=== PATIENT | male | born 1950 | race Caucasian/White ===

== ENCOUNTER 2017-10-31 07:10 | Emergency (ER) | payer BC, MEDICARE ==
[2017-10-31 07:39] LABS: ADD MAN DIFF? NO
[2017-10-31] MEDS: IPRATROPIUM BROMIDE 0.5 MG/2.5 ML NEBU. NEB (07:44)
[2017-10-31] MEDS: ALBUTEROL SULFATE 2.5 MG/3 ML NEBU. CONT NEB (07:46)
[2017-10-31 07:50] LABS: BASO % 1 % (0-3); EOS # 0.1 x10^3/uL (0.0-0.7); EOS % 1 % (0-3); HEMATOCRIT 43.7 % (39.0-53.0); HEMOGLOBIN 14.4 g/dL (13.0-17.5); LYMPH # 1.1 x10^3/uL (1.0-4.8); LYMPH % 21 % (24-48); MEAN CORPUSCULAR HEMOGLOBIN 32 pg (25-35); MEAN CORPUSCULAR HGB CONC 33 g/dL (31-37); MEAN CORPUSCULAR VOLUME 97 fL (79-100); MONO # 0.5 x10^3/uL (0.0-1.1); MONO % 9 % (0-9); NEUT # 3.5 x10^3uL (1.8-7.7); NEUT % 68 % (31-73); PLATELET COUNT 229 x10^3/uL (140-400); RED BLOOD COUNT 4.49 x10^6/uL (4.30-5.70); RED CELL DISTRIBUTION WIDTH 14.9 % (11.5-14.5); WHITE BLOOD COUNT 5.1 x10^3/uL (4.0-11.0)
[2017-10-31] MEDS: methylPREDNISolone SOD SUCC PF 125 MG/2 ML VIAL. IV (07:54)
[2017-10-31 07:57] LABS: ANION GAP 9 (6-14); BLOOD UREA NITROGEN 12 mg/dL (8-26); BUN/CREATININE RATIO 15 (6-20); CALCIUM 9.6 mg/dL (8.5-10.1); CARBON DIOXIDE 30 mmol/L (21-32); CHLORIDE 106 mmol/L (98-107); CREATININE 0.8 mg/dL (0.7-1.3); GLUCOSE 100 mg/dL (70-99); POTASSIUM 3.3 mmol/L (3.5-5.1); SODIUM 145 mmol/L (136-145)
[2017-10-31 08:02] LABS: ALBUMIN 3.4 g/dL (3.4-5.0); ALK PHOS 72 U/L (46-116); ALT (SGPT) 28 U/L (16-63); AST (SGOT) 16 U/L (15-37); LIPASE 87 U/L (73-393); TOTAL BILIRUBIN 0.5 mg/dL (0.2-1.0); TOTAL PROTEIN 6.7 g/dL (6.4-8.2)
[2017-10-31 08:04] LABS: TROPONINI 0.018 ng/mL (0.000-0.055)
[2017-10-31 08:06] LABS: D-DIMER 1.39 ug/mlFEU (0.00-0.50)
[2017-10-31 08:07] LABS: NT-PRO BNP 634 pg/mL (0-124)
[2017-10-31] MEDS ORDERED: CONTRAST GIVEN MC (08:30)
[2017-10-31] MEDS: IOHEXOL 300 MG/ML 100ML VIAL. IV (09:20)
[2017-10-31] MEDS: FUROSEMIDE 40 MG/4 ML VIAL. IVP (10:38)
== END 2017-10-31 10:44 | disposition home or self-care (01) ==
LOC: ER 07:10
DX: R06.00 Dyspnea, unspecified (principal); R09.89 Other specified symptoms and signs involving the circulatory and respiratory systems; R05 Cough; F17.200 Nicotine dependence, unspecified, uncomplicated
CPT/HCPCS: 36415; 71045; 71275; 80053; 83690; 83880; 84484; 85025; 85379; 93005; 94644; 96374; 96375; 99285-25; J1940; J2930; J7613; J7644; Q9967

== ENCOUNTER 2018-04-02 06:02 | Emergency (ER) | payer BC, MEDICARE ==
[~2018-04-02] VITALS: Ht 180.3 cm; Wt 63.5 kg
[~2018-04-02 06:02] MED LIST: FURO-69 PO; PRED50TA PO
--- NOTE | 2018-04-02 06:19 | PHYS DOC ---
Past Medical History Past Medical History: Asthma, Bronchitis, COPD Past Surgical History: No Surgical History Alcohol Use: Rarely Drug Use: None Adult General Chief Complaint Chief Complaint: SHORTNESS OF BREATH HPI HPI Patient is a 67 year old male who presents with dyspnea. Patient is known to have COPD. He reports increased use of inhalers over the last 24 hours with worsening dyspnea this morning causing him to come to the ER. + worsening cough and sputum production. No fever or chills. Review of Systems Review of Systems Constitutional: Denies fever or chills HENT: Denies nasal congestion Respiratory: as documented above Cardiovascular: No additional information not addressed in HPI GI: Denies abdominal pain : Denies Musculoskeletal: Denies back pain Integument: Denies rash or skin lesions Neurologic: Denies headache Endocrine: Denies polyuria All other systems were reviewed and found to be within normal limits, except as documented in this note. Current Medications Current Medications Current Medications Medications (Trade) Dose Ordered Sig/Marjorie Start Time Stop Time Status Last Admin Dose Admin Albuterol Sulfate (Ventolin Neb Soln) 10 mg 1X ONCE 04/02/18 08:00 04/02/18 08:01 DC Albuterol/ Ipratropium (Duoneb) 3 ml 1X ONCE 04/02/18 07:00 04/02/18 07:03 DC 04/02/18 07:04 3 ML Azithromycin (Zithromax) 500 mg 1X ONCE 04/02/18 08:00 04/02/18 08:04 DC 04/02/18 08:36 500 MG Methylprednisolone Sodium Succinate (SOLU-Medrol 125MG VIAL) 125 mg 1X ONCE 04/02/18 06:30 04/02/18 06:31 DC 04/02/18 06:38 125 MG Allergies Allergies Allergies Coded Allergies Type Severity Reaction Last Updated Verified No Known Drug Allergies 10/31/17 No Physical Exam Physical Exam Constitutional: thin male in moderate respiratory distress HENT: Normocephalic, atraumatic, Eyes: PERRLA, EOMI Neck: Normal range of motion Cardiovascular:Heart rate regular rhythm Lungs & Thorax: significantly diminished air mvt. prolonged expiratory phase. faint wheezes bilaterally Abdomen: Bowel sounds normal, soft Skin: Warm, dry Back: No tenderness Extremities: No tenderness, no edema Neurologic: Alert and oriented X 3 Psychologic: Affect normal Current Patient Data Vital Signs Vital Signs Date Time Temp Pulse Resp B/P (MAP) Pulse Ox O2 Delivery O2 Flow Rate FiO2 04/02/18 07:55 95 Room Air 04/02/18 07:04 2.0 04/02/18 06:43 88 24 117/70 (86) 04/02/18 06:06 97.9 97.9 Lab Values Laboratory Tests Test 04/02/18 06:20 White Blood Count 9.2 x10^3/uL (4.0-11.0) Red Blood Count 4.75 x10^6/uL (4.30-5.70) Hemoglobin 15.4 g/dL (13.0-17.5) Hematocrit 45.4 % (39.0-53.0) Mean Corpuscular Volume 96 fL (79-100) Mean Corpuscular Hemoglobin 33 pg (25-35) Mean Corpuscular Hemoglobin Concent 34 g/dL (31-37) Red Cell Distribution Width 14.7 % (11.5-14.5) H Platelet Count 208 x10^3/uL (140-400) Neutrophils (%) (Auto) 75 % (31-73) H Lymphocytes (%) (Auto) 13 % (24-48) L Monocytes (%) (Auto) 8 % (0-9) Eosinophils (%) (Auto) 3 % (0-3) Basophils (%) (Auto) 1 % (0-3) Neutrophils # (Auto) 6.9 x10^3uL (1.8-7.7) Lymphocytes # (Auto) 1.2 x10^3/uL (1.0-4.8) Monocytes # (Auto) 0.7 x10^3/uL (0.0-1.1) Eosinophils # (Auto) 0.2 x10^3/uL (0.0-0.7) Basophils # (Auto) 0.1 x10^3/uL (0.0-0.2) Sodium Level 140 mmol/L (136-145) Potassium Level 4.0 mmol/L (3.5-5.1) Chloride Level 104 mmol/L (98-107) Carbon Dioxide Level 26 mmol/L (21-32) Anion Gap 10 (6-14) Blood Urea Nitrogen 16 mg/dL (8-26) Creatinine 0.9 mg/dL (0.7-1.3) Estimated GFR (Cockcroft-Gault) 84.7 Glucose Level 121 mg/dL (70-99) H Calcium Level 9.6 mg/dL (8.5-10.1) Procalcitonin < 0.10 ng/mL (0.00-0.10) Laboratory Tests 04/02/18 06:20 Laboratory Tests 04/02/18 06:20 EKG EKG [] Radiology/Procedures Radiology/Procedures No acute findings on CXR Course & Med Decision Making Course & Med Decision Making Pertinent Labs and Imaging studies reviewed. (See chart for details) patient is seen immediately on arrival to room 19. COPD exacerbation. No chest pain. Orders placed. 09:00: Patient was followed in the emergency department for 3 hours. He received a single DuoNeb treatment followed by an additional albuterol nebulized treatment followed by an hour-long continuous treatment. He also received Solu-Medrol intravenously. Following these treatments, the patient was much improved. He did continue to have some diminished air flow but he states he subjectively is at baseline. He did not have an oxygen requirement during the ED course. He does not use oxygen at home. Plan is for discharge home. Patient is advised to follow-up with his primary care doctor or come back to the ER for any new or worsening symptoms. He is treated with azithromycin and prednisone over the next 4 days for COPD exacerbation. Dragon Disclaimer Dragon Disclaimer This electronic medical record was generated, in whole or in part, using a voice recognition dictation system. Departure Departure Referrals: NO PCP (PCP) ASAF JARAMILLO DO Apr 02, 2018 06:19
[2018-04-02] MEDS ORDERED: IPRATRPIUM/ALBUTEROL 0.5/2.5MG 3 ML NEBU. NEB ONE ×2 (06:30→07:00)
[2018-04-02] MEDS ORDERED: methylPREDNISolone SOD SUCC PF 125 MG/2 ML VIAL. IV ONE (06:30)
[2018-04-02 06:35] LABS: BASO # 0.1 x10^3/uL (0.0-0.2); BASO % 1 % (0-3); EOS # 0.2 x10^3/uL (0.0-0.7); EOS % 3 % (0-3); HEMATOCRIT 45.4 % (39.0-53.0); HEMOGLOBIN 15.4 g/dL (13.0-17.5); LYMPH # 1.2 x10^3/uL (1.0-4.8); LYMPH % 13 % (24-48); MEAN CORPUSCULAR HEMOGLOBIN 33 pg (25-35); MEAN CORPUSCULAR HGB CONC 34 g/dL (31-37); MEAN CORPUSCULAR VOLUME 96 fL (79-100); MONO # 0.7 x10^3/uL (0.0-1.1); MONO % 8 % (0-9); NEUT # 6.9 x10^3uL (1.8-7.7); NEUT % 75 % (31-73); PLATELET COUNT 208 x10^3/uL (140-400); RED BLOOD COUNT 4.75 x10^6/uL (4.30-5.70); RED CELL DISTRIBUTION WIDTH 14.7 % (11.5-14.5); WHITE BLOOD COUNT 9.2 x10^3/uL (4.0-11.0)
[2018-04-02 06:44] LABS: CALCIUM 9.6 mg/dL (8.5-10.1); CREATININE 0.9 mg/dL (0.7-1.3); GFR 84.7
[2018-04-02] MEDS ORDERED: ALBUTEROL SULFATE 2.5 MG/3 ML NEBU. CONT NEB ONE ×2 (07:45→08:00)
--- NOTE | 2018-04-02 07:50 | RAD ---
Portable chest, 04/02/2018: HISTORY: Dyspnea, COPD The lungs are hyperexpanded. The heart size is normal. There is mild parenchymal scarring. No acute infiltrate is seen. There is no evidence of pleural fluid or pneumothorax. IMPRESSION: 1. Pulmonary emphysema with mild parenchymal scarring. 2. No acute acute abnormality is detected. Electronically signed by: Cesar Suazo MD (04/02/2018 7:46 AM) [facility]
[2018-04-02] MEDS ORDERED: AZITHROMYCIN 250 MG TABLET. PO ONE (08:00)
[2018-04-02 09:00] VITALS: BP 130/70
[2018-04-02] MEDS ORDERED: PRED50TA PO (09:06)
[2018-04-02] MEDS ORDERED: AZIT250T6 PO (09:06)
[2018-04-09] MEDS ORDERED: BUDE10.22 IH (09:55)
== END 2018-04-02 09:19 | disposition home or self-care (01) ==
LOC: ER 06:02
DX: J44.1 Chronic obstructive pulmonary disease with (acute) exacerbation (principal)
CPT/HCPCS: 36415; 71045; 80048; 84145; 85025; 94644; 96374; 99285; J2930; J7613; J7620; Q0144; 94640

== ENCOUNTER 2018-04-08 16:15 | Inpatient (IN) | payer BC, MEDICARE ==
[~2018-04-08] VITALS: Ht 180.3 cm; Wt 60.4 kg
[~2018-04-08 16:15] MED LIST changes: +AZIT250T6 PO
[2018-04-08] MEDS ORDERED: IPRATRPIUM/ALBUTEROL 0.5/2.5MG 3 ML NEBU. NEB ONE (16:45)
[2018-04-08] MEDS ORDERED: methylPREDNISolone SOD SUCC PF 125 MG/2 ML VIAL. IV ONE (16:45)
[2018-04-08] MEDS ORDERED: IV NORMAL SALINE 1000ML BAG 1,000 ML IV ONE (16:45)
[2018-04-08 16:51] LABS: BASO % 0 % (0-3); EOS # 0.2 x10^3/uL (0.0-0.7); EOS % 2 % (0-3); HEMATOCRIT 41.7 % (39.0-53.0); HEMOGLOBIN 14.1 g/dL (13.0-17.5); LYMPH # 1.1 x10^3/uL (1.0-4.8); LYMPH % 12 % (24-48); MEAN CORPUSCULAR HEMOGLOBIN 32 pg (25-35); MEAN CORPUSCULAR HGB CONC 34 g/dL (31-37); MEAN CORPUSCULAR VOLUME 95 fL (79-100); MONO # 0.9 x10^3/uL (0.0-1.1); MONO % 9 % (0-9); NEUT # 7.3 x10^3uL (1.8-7.7); NEUT % 77 % (31-73); PLATELET COUNT 217 x10^3/uL (140-400); RED BLOOD COUNT 4.38 x10^6/uL (4.30-5.70); RED CELL DISTRIBUTION WIDTH 14.9 % (11.5-14.5); WHITE BLOOD COUNT 9.5 x10^3/uL (4.0-11.0)
--- NOTE | 2018-04-08 17:02 | PHYS DOC ---
Past Medical History Past Medical History: Asthma, Bronchitis, COPD Past Surgical History: No Surgical History Smoking: Cigarettes, 1 Pack Per Day Alcohol Use: Rarely Drug Use: None Adult General Chief Complaint Chief Complaint: SHORTNESS OF BREATH HPI HPI 67-year-old male presents to ER via POV for complaints of increased shortness of air- he drove self to ER. Pt required assistance from his vehicle due to his shortness of air and had O2 sat on RA at 90% with labored resp. Pt was placed on 2L via NC and reports improved sxs. Pt's O2 sat with oxygen up to 97%; however resp. do remain labored. Pt is able to speak in fragmented sentences. Pt reports he was seen in ER for SOA on Monday and was given course of Prednisone- he reports he finished Rx on Monday. Pt reports he felt his sxs started getting bad again on Monday and today he has had difficulty "catching his breath". Pt reports he has had chest tightness and prod. cough with white phlegm. Pt reports he has felt warm and clammy- uncertain of temp. Pt denies lethargy but reports he has been feeling fatigued. Pt denies swelling in extremities, abd pain, or N/V/D. Pt is 1ppd smoker for several years. Review of Systems Review of Systems Constitutional: Reports feeling clammy- uncertain of fever Eyes: Denies change in visual acuity, redness, or eye pain [] HENT: Denies nasal congestion or sore throat [] Respiratory: Reports cough with white phlegm. Reports severe SOA today Cardiovascular: Reports chest tightness. Denies palpitations GI: Denies abdominal pain, nausea, vomiting, bloody stools or diarrhea [] : Denies dysuria or hematuria [] Musculoskeletal: Denies back/neck pain or joint pain [] Integument: Denies rash or skin lesions. Denies swelling Neurologic: Denies headache, focal weakness or sensory changes. Reports lightheadedness and dizziness when SOA worsened today and he was having rapid resp. All other systems were reviewed and found to be within normal limits, except as documented in this note. Current Medications Current Medications Current Medications Medications (Trade) Dose Ordered Sig/Marjorie Start Time Stop Time Status Last Admin Dose Admin Acetaminophen (Tylenol) 650 mg PRN Q4HRS PRN 04/08/18 18:00 04/09/18 17:59 Acetaminophen/ Codeine Phosphate (Tylenol #3) 1 tab PRN Q6HRS PRN 04/08/18 18:00 Albuterol Sulfate (Ventolin Neb Soln) 2.5 mg PRN Q4HRS PRN 04/08/18 18:00 Albuterol/ Ipratropium (Duoneb) 3 ml RTQID 04/08/18 20:00 04/09/18 19:59 UNV Benzonatate (Tessalon Perle) 100 mg [id number] 04/08/18 21:00 Diphenhydramine HCl (Benadryl) 25 mg PRN QHS PRN 04/08/18 18:00 Doxycycline Hyclate (Vibra-Tab) 100 mg 1X ONCE 04/08/18 17:45 04/08/18 17:48 DC Furosemide (Lasix) 20 mg [id number] 04/08/18 18:00 Guaifenesin (Robitussin Dm) 10 ml PRN Q6HRS PRN 04/08/18 18:00 Methylprednisolone Sodium Succinate (SOLU-Medrol 40MG VIAL) 40 mg Q8HRS 04/08/18 22:00 Methylprednisolone Sodium Succinate (SOLU-Medrol 125MG VIAL) 125 mg 1X ONCE 04/08/18 16:45 04/08/18 16:46 DC 04/08/18 16:50 125 MG Nicotine (Nicoderm Cq 21mg) 1 patch PRN DAILY PRN 04/08/18 18:00 Ondansetron HCl (Zofran Odt) 4 mg PRN Q6HRS PRN 04/08/18 18:00 Ondansetron HCl (Zofran) 4 mg PRN Q6HRS PRN 04/08/18 18:00 Sodium Chloride 1,000 ml @ 1,000 mls/hr 1X ONCE 04/08/18 16:45 04/08/18 17:44 DC 04/08/18 16:51 1,000 MLS/HR Allergies Allergies Allergies Coded Allergies Type Severity Reaction Last Updated Verified No Known Drug Allergies 10/31/17 No Physical Exam Physical Exam Constitutional: Well developed, well nourished, moderate distress on initial exam with labored resp. HENT: Normocephalic, atraumatic, bilateral ears normal, mucous membranes pink/ dry, no oral exudates, nose normal. [] Eyes: PERRLA, conjunctiva normal, no discharge. [] Neck: Normal range of motion, no tenderness, supple, no gross adenopathy Cardiovascular:Heart rate regular rhythm, no murmur [] Lungs & Thorax: Diminished lung sounds throughout- less air movement in bases. No chest wall tenderness/crepitus. Equal/labored resp. Speaking in fragmented sentences Abdomen: Bowel sounds normal, soft, no tenderness, no masses, no pulsatile masses. [] Skin: Warm, dry, no erythema, no rash.Upper chest skin color dusky- no swelling Back: No tenderness, no CVA tenderness. [] Extremities: No tenderness, no clubbing, ROM intact, no edema.Cyanotic nailbeds Neurologic: Alert and oriented X 3, normal motor function, normal sensory function, no focal deficits noted. [] Psychologic: Affect normal, judgement normal, mood normal. [] Current Patient Data Vital Signs Vital Signs Date Time Temp Pulse Resp B/P (MAP) Pulse Ox O2 Delivery O2 Flow Rate FiO2 04/08/18 17:20 82 20 136/69 (91) 98 Room Air 04/08/18 16:52 4.0 04/08/18 16:20 97.9 97.9 Lab Values Laboratory Tests Test 04/08/18 16:40 04/08/18 17:04 White Blood Count 9.5 x10^3/uL (4.0-11.0) Red Blood Count 4.38 x10^6/uL (4.30-5.70) Hemoglobin 14.1 g/dL (13.0-17.5) Hematocrit 41.7 % (39.0-53.0) Mean Corpuscular Volume 95 fL (79-100) Mean Corpuscular Hemoglobin 32 pg (25-35) Mean Corpuscular Hemoglobin Concent 34 g/dL (31-37) Red Cell Distribution Width 14.9 % (11.5-14.5) H Platelet Count 217 x10^3/uL (140-400) Neutrophils (%) (Auto) 77 % (31-73) H Lymphocytes (%) (Auto) 12 % (24-48) L Monocytes (%) (Auto) 9 % (0-9) Eosinophils (%) (Auto) 2 % (0-3) Basophils (%) (Auto) 0 % (0-3) Neutrophils # (Auto) 7.3 x10^3uL (1.8-7.7) Lymphocytes # (Auto) 1.1 x10^3/uL (1.0-4.8) Monocytes # (Auto) 0.9 x10^3/uL (0.0-1.1) Eosinophils # (Auto) 0.2 x10^3/uL (0.0-0.7) Basophils # (Auto) 0.0 x10^3/uL (0.0-0.2) Sodium Level 138 mmol/L (136-145) Potassium Level 3.8 mmol/L (3.5-5.1) Chloride Level 101 mmol/L (98-107) Carbon Dioxide Level 32 mmol/L (21-32) Anion Gap 5 (6-14) L Blood Urea Nitrogen 17 mg/dL (8-26) Creatinine 0.8 mg/dL (0.7-1.3) Estimated GFR (Cockcroft-Gault) 97.0 BUN/Creatinine Ratio 21 (6-20) H Glucose Level 122 mg/dL (70-99) H Calcium Level 9.7 mg/dL (8.5-10.1) Magnesium Level 1.9 mg/dL (1.8-2.4) Total Bilirubin 0.4 mg/dL (0.2-1.0) Aspartate Amino Transferase (AST) 23 U/L (15-37) Alanine Aminotransferase (ALT) 45 U/L (16-63) Alkaline Phosphatase 108 U/L (46-116) Creatine Kinase 268 U/L (39-308) Creatine Kinase MB (Mass) 5.2 ng/mL (0.0-3.6) H Creatine Kinase MB Relative Index 1.9 % (0-4) Troponin I Quantitative < 0.017 ng/mL (0.000-0.055) GT-Nbt-S-Type Natriuretic Peptide 403 pg/mL (0-124) H Total Protein 6.8 g/dL (6.4-8.2) Albumin 3.5 g/dL (3.4-5.0) Albumin/Globulin Ratio 1.1 (1.0-1.7) Lactic Acid Level 0.7 mmol/L (0.4-2.0) Laboratory Tests 04/08/18 16:40 Laboratory Tests 04/08/18 16:40 EKG EKG EKG obtained at 1631 on 04/08/[address] Alcantar Sinus rhythm Vent rate 98 Radiology/Procedures Radiology/Procedures [] Course & Med Decision Making Course & Med Decision Making Pertinent Labs and Imaging studies reviewed. (See chart for details) 1744: Pt on re-exam after Duoneb and IV solu-medrol has improved skin color and resp. less labored. O2 sat 99% on 3L. Resp. remain equal and are still slightly labored- pt is able to speak in full sentences reporting his SOA has much improved since arriving to ER and receiving txs. Pt reports chest tightness subsided. Discussed test results and although no acute findings on chest xray discussed admission for further care/tx as his resp. are still labored on O2. Pt is agreeable with admission plan. Will start PO Doxycycline with pt having hx of smoking. On re-exam pt has increased air movement throughout all lobes- remains more diminished in bases- bilat. upper expiratory wheezing. At time of discussion pt remains nontoxic in appearance and is smiling with staff. Spoke with Dr. Garsia, hospitalist and discussed pt's case and plans for admission to their services for further care/monitoring. Dragon Disclaimer Dragon Disclaimer This electronic medical record was generated, in whole or in part, using a voice recognition dictation system. Departure Departure Impression: Primary Impression: COPD exacerbation Additional Impression: Dyspnea Disposition: 09 ADMITTED INPATIENT Admitting Physician: Tammi Garsia Condition: STABLE Referrals: DEDRICK LINDSEY (PCP) Problem Qualifiers KAT STARK APRN Apr 08, 2018 17:02
[2018-04-08 17:05] LABS: CALCIUM 9.7 mg/dL (8.5-10.1); CREATININE 0.8 mg/dL (0.7-1.3); POTASSIUM 3.8 mmol/L (3.5-5.1)
[2018-04-08 17:13] LABS: ALBUMIN 3.5 g/dL (3.4-5.0); ALBUMIN/GLOBULIN RATIO 1.1 (1.0-1.7); MAGNESIUM 1.9 mg/dL (1.8-2.4); TOTAL BILIRUBIN 0.4 mg/dL (0.2-1.0); TOTAL PROTEIN 6.8 g/dL (6.4-8.2)
[2018-04-08] MEDS ORDERED: DOXYCYCLINE HYCLATE 100 MG TABLET PO ONE (17:45)
[2018-04-08] MEDS ORDERED: ONDANSETRON PF 4 MG/2 ML VIAL. IV PRN (18:00)
[2018-04-08] MEDS ORDERED: ACETAMINOPHEN/CODEINE 300/30MG TABLET. PO PRN (18:00)
[2018-04-08] MEDS ORDERED: NICOTINE 21MG PATCH. TD PRN (18:00)
[2018-04-08] MEDS ORDERED: ACETAMINOPHEN 325 MG TABLET. PO PRN (18:00)
[2018-04-08] MEDS ORDERED: guaiFENesin DM 200MG/20MG 10 ML SYRUP PO PRN (18:00)
[2018-04-08] MEDS ORDERED: ACETAMINOPHEN 500 MG TABLET PO PRN (18:00)
[2018-04-08] MEDS ORDERED: diphenhydrAMINE HCL 25 MG CAPSULE PO PRN (18:00)
[2018-04-08] MEDS ORDERED: ALBUTEROL SULFATE 2.5 MG/3 ML NEBU. NEB PRN (18:00)
[2018-04-08] MEDS ORDERED: ONDANSETRON ODT 4 MG TAB.RAPDIS. PO PRN (18:00)
--- NOTE | 2018-04-08 18:04 | PDOC1 ---
History and Physical Date of Admission Date of Admission DATE: 04/08/18 TIME: 17:57 Identification/Chief Complaint Chief Complaint Cannot breathe Source Source: Caregiver, Chart review, Patient History of Present Illness History of Present Illness 67-year-old male who unfortunately continues to smoke a pack a day, for many years, comes in because of could not catch his breath. He is wheezy anterior and posterior auscultation. Chest x-ray looks okay. He actually had at ER visit 7 days ago was discharged on tapering steroids and by mouth antibiotics with no relief. He had low saturations on arrival but that is better now after ER treatment. He's laying still because short movements makes him wheezy and SOA. We will admit with pulmonary consult, continue breathing treatments, steroids and some empiric antibiotics Discussed with ER mid-level provider Seen at ER NO other signif pMHx He denies any recent sick contacts or travels. He lives alone at home. He does not have any fevers. He thinks he coughing up something now, which he thinks is a good sign. Past Medical History Pulmonary: Asthma, Bronchitis, COPD Past Surgical History Past Surgical History: No pertinent history Family History Family History: No Significant Social History Smoke: 1 pack per day ALCOHOL: none Drugs: None Current Medications Current Medications Current Medications Sodium Chloride 1,000 ml @ 1,000 mls/hr 1X ONCE IV Last administered on at 16:51; Start 04/08/18 at 16:45; Stop 04/08/18 at 17:44; Status DC Albuterol/ Ipratropium (Duoneb) 3 ml 1X ONCE NEB Last administered on at 16:51; Start 04/08/18 at 16:45; Stop 04/08/18 at 16:46; Status DC Methylprednisolone Sodium Succinate (SOLU-Medrol 125MG VIAL) 125 mg 1X ONCE IV Last administered on 04/08/18at 16:50; Start 04/08/18 at 16:45; Stop 04/08/18 at 16:46; Status DC Doxycycline Hyclate (Vibra-Tab) 100 mg 1X ONCE PO ; Start 04/08/18 at 17:45; Stop 04/08/18 at 17:48; Status DC Furosemide (Lasix) 20 mg [id number] PO ; Start 04/08/18 at 18:00 Active Scripts Active Azithromycin Tablet (Azithromycin) 250 Mg Tablet 250 Mg PO DAILY Prednisone 50 Mg Tablet 1 Tab PO DAILY Prednisone 50 Mg Tablet 1 Tab PO DAILY Lasix (Furosemide) 20 Mg Tablet 1 Tab PO BID Allergies Allergies: Coded Allergies: No Known Drug Allergies (Unverified , 10/31/17) ROS Review of System As per history of present illness, the rest of ROS 14 point negative Physical Exam General: Alert, Oriented X3, Cooperative, mild distress, moderate distress HEENT: Atraumatic, PERRLA Lungs: Normal air movement, Other (wheezy anterior and posterior auscultation, no crackles) Heart: S1S2, RRR, no thrills, no rubs, no gallops, no murmurs, other (mild sinus tachycardia in the 90s to low 100s) Cardiovascular: S1 Abdomen: Normal bowel sounds Male Genitals Exam: normal genitalia, normal prostate Rectal Exam: not examined PELVIC: Nml ext genitalia Extremities: No clubbing, No cyanosis, No edema, Normal pulses, No tenderness/ swelling Skin: No rashes, No breakdown, No significant lesion Neuro: Normal gait, Normal speech, Strength at 5/5 X4 ext, Normal tone, Sensation intact, Cranial nerves 3-12 NL, Reflexes 2+ Psych/Mental Status: Mental status NL, Mood NL Vitals Vitals Vital Signs Date Time Temp Pulse Resp B/P (MAP) Pulse Ox O2 Delivery O2 Flow Rate FiO2 04/08/18 17:20 82 20 136/69 (91) 98 Room Air 04/08/18 16:52 4.0 04/08/18 16:20 97.9 97.9 Labs Labs Laboratory Tests Test 04/08/18 16:40 04/08/18 17:04 White Blood Count 9.5 x10^3/uL (4.0-11.0) Red Blood Count 4.38 x10^6/uL (4.30-5.70) Hemoglobin 14.1 g/dL (13.0-17.5) Hematocrit 41.7 % (39.0-53.0) Mean Corpuscular Volume 95 fL (79-100) Mean Corpuscular Hemoglobin 32 pg (25-35) Mean Corpuscular Hemoglobin Concent 34 g/dL (31-37) Red Cell Distribution Width 14.9 % (11.5-14.5) Platelet Count 217 x10^3/uL (140-400) Neutrophils (%) (Auto) 77 % (31-73) Lymphocytes (%) (Auto) 12 % (24-48) Monocytes (%) (Auto) 9 % (0-9) Eosinophils (%) (Auto) 2 % (0-3) Basophils (%) (Auto) 0 % (0-3) Neutrophils # (Auto) 7.3 x10^3uL (1.8-7.7) Lymphocytes # (Auto) 1.1 x10^3/uL (1.0-4.8) Monocytes # (Auto) 0.9 x10^3/uL (0.0-1.1) Eosinophils # (Auto) 0.2 x10^3/uL (0.0-0.7) Basophils # (Auto) 0.0 x10^3/uL (0.0-0.2) Sodium Level 138 mmol/L (136-145) Potassium Level 3.8 mmol/L (3.5-5.1) Chloride Level 101 mmol/L (98-107) Carbon Dioxide Level 32 mmol/L (21-32) Anion Gap 5 (6-14) Blood Urea Nitrogen 17 mg/dL (8-26) Creatinine 0.8 mg/dL (0.7-1.3) Estimated GFR (Cockcroft-Gault) 97.0 BUN/Creatinine Ratio 21 (6-20) Glucose Level 122 mg/dL (70-99) Calcium Level 9.7 mg/dL (8.5-10.1) Magnesium Level 1.9 mg/dL (1.8-2.4) Total Bilirubin 0.4 mg/dL (0.2-1.0) Aspartate Amino Transf (AST/SGOT) 23 U/L (15-37) Alanine Aminotransferase (ALT/SGPT) 45 U/L (16-63) Alkaline Phosphatase 108 U/L (46-116) Creatine Kinase 268 U/L (39-308) Creatine Kinase MB (Mass) 5.2 ng/mL (0.0-3.6) Creatine Kinase MB Relative Index 1.9 % (0-4) Troponin I Quantitative < 0.017 ng/mL (0.000-0.055) DQ-Rah-J-Type Natriuretic Peptide 403 pg/mL (0-124) Total Protein 6.8 g/dL (6.4-8.2) Albumin 3.5 g/dL (3.4-5.0) Albumin/Globulin Ratio 1.1 (1.0-1.7) Lactic Acid Level 0.7 mmol/L (0.4-2.0) Laboratory Tests Test 04/08/18 16:40 04/08/18 17:04 White Blood Count 9.5 x10^3/uL (4.0-11.0) Red Blood Count 4.38 x10^6/uL (4.30-5.70) Hemoglobin 14.1 g/dL (13.0-17.5) Hematocrit 41.7 % (39.0-53.0) Mean Corpuscular Volume 95 fL (79-100) Mean Corpuscular Hemoglobin 32 pg (25-35) Mean Corpuscular Hemoglobin Concent 34 g/dL (31-37) Red Cell Distribution Width 14.9 % (11.5-14.5) Platelet Count 217 x10^3/uL (140-400) Neutrophils (%) (Auto) 77 % (31-73) Lymphocytes (%) (Auto) 12 % (24-48) Monocytes (%) (Auto) 9 % (0-9) Eosinophils (%) (Auto) 2 % (0-3) Basophils (%) (Auto) 0 % (0-3) Neutrophils # (Auto) 7.3 x10^3uL (1.8-7.7) Lymphocytes # (Auto) 1.1 x10^3/uL (1.0-4.8) Monocytes # (Auto) 0.9 x10^3/uL (0.0-1.1) Eosinophils # (Auto) 0.2 x10^3/uL (0.0-0.7) Basophils # (Auto) 0.0 x10^3/uL (0.0-0.2) Sodium Level 138 mmol/L (136-145) Potassium Level 3.8 mmol/L (3.5-5.1) Chloride Level 101 mmol/L (98-107) Carbon Dioxide Level 32 mmol/L (21-32) Anion Gap 5 (6-14) Blood Urea Nitrogen 17 mg/dL (8-26) Creatinine 0.8 mg/dL (0.7-1.3) Estimated GFR (Cockcroft-Gault) 97.0 BUN/Creatinine Ratio 21 (6-20) Glucose Level 122 mg/dL (70-99) Calcium Level 9.7 mg/dL (8.5-10.1) Magnesium Level 1.9 mg/dL (1.8-2.4) Total Bilirubin 0.4 mg/dL (0.2-1.0) Aspartate Amino Transf (AST/SGOT) 23 U/L (15-37) Alanine Aminotransferase (ALT/SGPT) 45 U/L (16-63) Alkaline Phosphatase 108 U/L (46-116) Creatine Kinase 268 U/L (39-308) Creatine Kinase MB (Mass) 5.2 ng/mL (0.0-3.6) Creatine Kinase MB Relative Index 1.9 % (0-4) Troponin I Quantitative < 0.017 ng/mL (0.000-0.055) AA-Gio-Q-Type Natriuretic Peptide 403 pg/mL (0-124) Total Protein 6.8 g/dL (6.4-8.2) Albumin 3.5 g/dL (3.4-5.0) Albumin/Globulin Ratio 1.1 (1.0-1.7) Lactic Acid Level 0.7 mmol/L (0.4-2.0) VTE Prophylaxis Ordered VTE Prophylaxis Devices: Yes VTE Pharmacological Prophylaxi: Yes Assessment/Plan Assessment/Plan Acute bronchitis COPD exacerbation smoker At least a pack-a-day smoker SIRS secondary to above, no sepsis, no organ dysfunction No pneumonia on chest x-ray Plan: Pulmo consult, admit 2 midnights, DuoNeb's, cough medicine, regular diet Empiric antibiotics Seen at ER nia patch Counseling cessation again smoking done today one-to-one at ER TU VALLEJO MD Apr 08, 2018 18:04
--- NOTE | 2018-04-08 18:06 | EKG ---
[facility] [address] [place] [address] Test Date: 2018-04-08 Test Time: 16:31:28 Pat Name: JUDY RAO Department: Room: Gender: M Inventory Transcriber: : [id number] Requested By: KAT STARK Order Number: [id number] Reading MD: Yuriy Valle MD Measurements Intervals [place] Rate: 98 P: 90 MN: 150 QRS: 75 QRSD: 86 T: 76 QT: 336 QTc: 431 Interpretive Statements SINUS RHYTHM Electronically Signed On 04-09-2018 10:53:13 CDT by Yuriy Valle MD
[2018-04-08] MEDS: FUROSEMIDE 20 MG TABLET PO SCH (18:09)
--- NOTE | 2018-04-08 18:14 | RAD ---
CHEST AP ONLY INDICATION: short of breath today, copd COMPARISON: Chest radiograph dated 04/02/2018 FINDINGS: Unchanged lung volume. Development of right suprahilar patchy airspace opacities. Unchanged pulmonary vasculature. No pleural effusion or pneumothorax. The cardiomediastinal silhouette and great vessels are unchanged. No acute osseous abnormality. IMPRESSION: Development of right suprahilar patchy airspace opacities. Findings are concerning for an infectious process. Asymmetric pulmonary edema is not excluded. Recommend continued radiographic follow-up to resolution. Electronically signed by: Nico Nath MD (04/08/2018 6:11 PM) [facility]
[2018-04-08 19:00] VITALS: BP 140/80
[2018-04-08] MEDS ORDERED: IPRATRPIUM/ALBUTEROL 0.5/2.5MG 3 ML NEBU. NEB SCH (20:00)
[2018-04-08] MEDS: IPRATRPIUM/ALBUTEROL 0.5/2.5MG 3 ML NEBU. NEB SCH (20:43)
[2018-04-08] MEDS ORDERED: IPRA3AMP29 NEB (21:14)
[2018-04-08] MEDS ORDERED: PROAIR HFA8.5 GM INH (21:14)
[2018-04-08] MEDS ORDERED: ATOR40TA59 PO (21:14)
[2018-04-08] MEDS ORDERED: METO-269 PO (21:14)
[2018-04-08] MEDS ORDERED: MOME13HF IH (21:14)
[2018-04-08 22:47] VITALS: BP 113/76
[2018-04-08] MEDS: BENZONATATE 100 MG CAPSULE. PO SCH (22:48)
[2018-04-08] MEDS: methylPREDNISolone SOD SUCC PF 40 MG/ML VIAL. IV SCH (22:49)
[2018-04-09] VITALS (7 sets, daily range): BP systolic 110–138; BP diastolic 63–84
[2018-04-09 03:45] LABS: BASO % 0 % (0-3); EOS % 0 % (0-3); HEMATOCRIT 42.9 % (39.0-53.0); HEMOGLOBIN 14.5 g/dL (13.0-17.5); LYMPH # 0.4 x10^3/uL (1.0-4.8); LYMPH % 5 % (24-48); MEAN CORPUSCULAR HEMOGLOBIN 32 pg (25-35); MEAN CORPUSCULAR HGB CONC 34 g/dL (31-37); MEAN CORPUSCULAR VOLUME 96 fL (79-100); MONO # 0.1 x10^3/uL (0.0-1.1); MONO % 2 % (0-9); NEUT # 7.4 x10^3uL (1.8-7.7); NEUT % 94 % (31-73); PLATELET COUNT 219 x10^3/uL (140-400); RED BLOOD COUNT 4.49 x10^6/uL (4.30-5.70); RED CELL DISTRIBUTION WIDTH 15.4 % (11.5-14.5)
[2018-04-09 04:01] LABS: CALCIUM 9.5 mg/dL (8.5-10.1); CREATININE 0.9 mg/dL (0.7-1.3); GFR 84.7; POTASSIUM 4.3 mmol/L (3.5-5.1)
[2018-04-09] MEDS: FUROSEMIDE 20 MG TABLET PO SCH ×2 (05:40→17:37)
[2018-04-09] MEDS: methylPREDNISolone SOD SUCC PF 40 MG/ML VIAL. IV SCH ×3 (05:41→22:00)
[2018-04-09] MEDS: IPRATRPIUM/ALBUTEROL 0.5/2.5MG 3 ML NEBU. NEB SCH ×4 (07:05→19:40)
[2018-04-09 07:36] LABS: % LYMPHS 6 % (24-48); % SEGS 94 % (35-66); PLT ESTIMATE ADEQUATE (ADEQUATE)
[2018-04-09] MEDS: BENZONATATE 100 MG CAPSULE. PO SCH ×3 (09:16→21:00)
[2018-04-09] MEDS ORDERED: BUDE10.22 IH (09:55)
--- NOTE | 2018-04-09 09:57 | PDOC3 ---
Discharge Summary Visit Information Date of Admission: Apr 08, 2018 Date of Discharge: Apr 09, 2018 Admitting Diagnosis Comment: Acute bronchitis COPD exacerbation smoker At least a pack-a-day smoker SIRS secondary to above, no sepsis, no organ dysfunction No pneumonia on chest x-ray Final Diagnosis Problems Medical Problems: (1) COPD exacerbation Status: Acute (2) Dyspnea Status: Acute Brief Hospital Course Allergies Allergies Coded Allergies Type Severity Reaction Last Updated Verified No Known Drug Allergies 10/31/17 No Vital Signs Vital Signs Date Time Temp Pulse Resp B/P (MAP) Pulse Ox O2 Delivery O2 Flow Rate FiO2 04/09/18 07:06 95 Nasal Cannula 2.0 04/09/18 07:00 97.7 93 20 135/84 (101) 97.7 Lab Results Laboratory Tests Test 04/08/18 16:40 04/08/18 17:04 04/09/18 03:00 White Blood Count 9.5 x10^3/uL (4.0-11.0) 8.0 x10^3/uL (4.0-11.0) Red Blood Count 4.38 x10^6/uL (4.30-5.70) 4.49 x10^6/uL (4.30-5.70) Hemoglobin 14.1 g/dL (13.0-17.5) 14.5 g/dL (13.0-17.5) Hematocrit 41.7 % (39.0-53.0) 42.9 % (39.0-53.0) Mean Corpuscular Volume 95 fL (79-100) 96 fL (79-100) Mean Corpuscular Hemoglobin 32 pg (25-35) 32 pg (25-35) Mean Corpuscular Hemoglobin Concent 34 g/dL (31-37) 34 g/dL (31-37) Red Cell Distribution Width 14.9 % (11.5-14.5) 15.4 % (11.5-14.5) Platelet Count 217 x10^3/uL (140-400) 219 x10^3/uL (140-400) Neutrophils (%) (Auto) 77 % (31-73) 94 % (31-73) Lymphocytes (%) (Auto) 12 % (24-48) 5 % (24-48) Monocytes (%) (Auto) 9 % (0-9) 2 % (0-9) Eosinophils (%) (Auto) 2 % (0-3) 0 % (0-3) Basophils (%) (Auto) 0 % (0-3) 0 % (0-3) Neutrophils # (Auto) 7.3 x10^3uL (1.8-7.7) 7.4 x10^3uL (1.8-7.7) Lymphocytes # (Auto) 1.1 x10^3/uL (1.0-4.8) 0.4 x10^3/uL (1.0-4.8) Monocytes # (Auto) 0.9 x10^3/uL (0.0-1.1) 0.1 x10^3/uL (0.0-1.1) Eosinophils # (Auto) 0.2 x10^3/uL (0.0-0.7) 0.0 x10^3/uL (0.0-0.7) Basophils # (Auto) 0.0 x10^3/uL (0.0-0.2) 0.0 x10^3/uL (0.0-0.2) Sodium Level 138 mmol/L (136-145) 137 mmol/L (136-145) Potassium Level 3.8 mmol/L (3.5-5.1) 4.3 mmol/L (3.5-5.1) Chloride Level 101 mmol/L (98-107) 101 mmol/L (98-107) Carbon Dioxide Level 32 mmol/L (21-32) 30 mmol/L (21-32) Anion Gap 5 (6-14) 6 (6-14) Blood Urea Nitrogen 17 mg/dL (8-26) 20 mg/dL (8-26) Creatinine 0.8 mg/dL (0.7-1.3) 0.9 mg/dL (0.7-1.3) Estimated GFR (Cockcroft-Gault) 97.0 84.7 BUN/Creatinine Ratio 21 (6-20) Glucose Level 122 mg/dL (70-99) 137 mg/dL (70-99) Calcium Level 9.7 mg/dL (8.5-10.1) 9.5 mg/dL (8.5-10.1) Magnesium Level 1.9 mg/dL (1.8-2.4) Total Bilirubin 0.4 mg/dL (0.2-1.0) Aspartate Amino Transf (AST/SGOT) 23 U/L (15-37) Alanine Aminotransferase (ALT/SGPT) 45 U/L (16-63) Alkaline Phosphatase 108 U/L (46-116) Creatine Kinase 268 U/L (39-308) Creatine Kinase MB (Mass) 5.2 ng/mL (0.0-3.6) Creatine Kinase MB Relative Index 1.9 % (0-4) Troponin I Quantitative < 0.017 ng/mL (0.000-0.055) CB-Vtk-N-Type Natriuretic Peptide 403 pg/mL (0-124) Total Protein 6.8 g/dL (6.4-8.2) Albumin 3.5 g/dL (3.4-5.0) Albumin/Globulin Ratio 1.1 (1.0-1.7) Lactic Acid Level 0.7 mmol/L (0.4-2.0) Segmented Neutrophils % 94 % (35-66) Lymphocytes % 6 % (24-48) Platelet Estimate Adequate (ADEQUATE) Laboratory Tests Test 04/08/18 16:40 04/08/18 17:04 04/09/18 03:00 White Blood Count 9.5 x10^3/uL (4.0-11.0) 8.0 x10^3/uL (4.0-11.0) Red Blood Count 4.38 x10^6/uL (4.30-5.70) 4.49 x10^6/uL (4.30-5.70) Hemoglobin 14.1 g/dL (13.0-17.5) 14.5 g/dL (13.0-17.5) Hematocrit 41.7 % (39.0-53.0) 42.9 % (39.0-53.0) Mean Corpuscular Volume 95 fL (79-100) 96 fL (79-100) Mean Corpuscular Hemoglobin 32 pg (25-35) 32 pg (25-35) Mean Corpuscular Hemoglobin Concent 34 g/dL (31-37) 34 g/dL (31-37) Red Cell Distribution Width 14.9 % (11.5-14.5) 15.4 % (11.5-14.5) Platelet Count 217 x10^3/uL (140-400) 219 x10^3/uL (140-400) Neutrophils (%) (Auto) 77 % (31-73) 94 % (31-73) Lymphocytes (%) (Auto) 12 % (24-48) 5 % (24-48) Monocytes (%) (Auto) 9 % (0-9) 2 % (0-9) Eosinophils (%) (Auto) 2 % (0-3) 0 % (0-3) Basophils (%) (Auto) 0 % (0-3) 0 % (0-3) Neutrophils # (Auto) 7.3 x10^3uL (1.8-7.7) 7.4 x10^3uL (1.8-7.7) Lymphocytes # (Auto) 1.1 x10^3/uL (1.0-4.8) 0.4 x10^3/uL (1.0-4.8) Monocytes # (Auto) 0.9 x10^3/uL (0.0-1.1) 0.1 x10^3/uL (0.0-1.1) Eosinophils # (Auto) 0.2 x10^3/uL (0.0-0.7) 0.0 x10^3/uL (0.0-0.7) Basophils # (Auto) 0.0 x10^3/uL (0.0-0.2) 0.0 x10^3/uL (0.0-0.2) Sodium Level 138 mmol/L (136-145) 137 mmol/L (136-145) Potassium Level 3.8 mmol/L (3.5-5.1) 4.3 mmol/L (3.5-5.1) Chloride Level 101 mmol/L (98-107) 101 mmol/L (98-107) Carbon Dioxide Level 32 mmol/L (21-32) 30 mmol/L (21-32) Anion Gap 5 (6-14) 6 (6-14) Blood Urea Nitrogen 17 mg/dL (8-26) 20 mg/dL (8-26) Creatinine 0.8 mg/dL (0.7-1.3) 0.9 mg/dL (0.7-1.3) Estimated GFR (Cockcroft-Gault) 97.0 84.7 BUN/Creatinine Ratio 21 (6-20) Glucose Level 122 mg/dL (70-99) 137 mg/dL (70-99) Calcium Level 9.7 mg/dL (8.5-10.1) 9.5 mg/dL (8.5-10.1) Magnesium Level 1.9 mg/dL (1.8-2.4) Total Bilirubin 0.4 mg/dL (0.2-1.0) Aspartate Amino Transf (AST/SGOT) 23 U/L (15-37) Alanine Aminotransferase (ALT/SGPT) 45 U/L (16-63) Alkaline Phosphatase 108 U/L (46-116) Creatine Kinase 268 U/L (39-308) Creatine Kinase MB (Mass) 5.2 ng/mL (0.0-3.6) Creatine Kinase MB Relative Index 1.9 % (0-4) Troponin I Quantitative < 0.017 ng/mL (0.000-0.055) VY-Voj-T-Type Natriuretic Peptide 403 pg/mL (0-124) Total Protein 6.8 g/dL (6.4-8.2) Albumin 3.5 g/dL (3.4-5.0) Albumin/Globulin Ratio 1.1 (1.0-1.7) Lactic Acid Level 0.7 mmol/L (0.4-2.0) Segmented Neutrophils % 94 % (35-66) Lymphocytes % 6 % (24-48) Platelet Estimate Adequate (ADEQUATE) Brief Hospital Course Mr. Pennington is a 67 old [sex] who presented with [ ] 67-year-old male who unfortunately continues to smoke a pack a day, for many years, comes in because of could not catch his breath. He is wheezy anterior and posterior auscultation. Chest x-ray looks okay. He actually had at ER visit 7 days ago was discharged on tapering steroids and by mouth antibiotics with no relief. He had low saturations on arrival but that is better now after ER treatment. He's laying still because short movements makes him wheezy and SOA. We will admit with pulmonary consult, continue breathing treatments, steroids and some empiric antibiotics Discussed with ER mid-level provider Seen at ER NO other signif pMHx He denies any recent sick contacts or travels. He lives alone at home. He does not have any fevers. He thinks he coughing up something now, which he thinks is a good sign. Course: After overnight stay, feels better, no more wheezing anteriorly. Advised against smoking. Wants to go home. Cleared from pulmonary and my service to go home. I have Rx prednisone taper, ProAir HFA and some Symbicort. Counseling against cigarettes. He is eating examined, discharge time less than 30 minutes, discussed with family at bedside Discharge Information Condition at Discharge: Improved, Stable Disposition/Orders: D/C to Home Scheduled Atorvastatin Calcium (Atorvastatin Calcium) 40 Mg Tablet, 1 TAB PO DAILY, #30 Ref 5 (Reported) Entered as Reported by: AMBREEN RAMIREZ on 04/08/182113 Last Action: New Order on 04/08/182113 by AMBREEN RAMIREZ Azithromycin (Azithromycin Tablet) 250 Mg Tablet, 250 MG PO DAILY for ANTI- BIOTIC, #4 Ref 0 Prescribed by: ASAF JARAMILLO D.O. on 04/02/18905 Last Action: HELD on 04/08/181753 by TU VALLEJO Budesonide/Formoterol Fumarate (Symbicort 80-4.5 Mcg Inhaler) 10.2 Gm Hfa.aer.ad , 2 PUFF IH BID, #10.2 Ref 5 Prescribed by: TU VALLEJO on 04/09/18 09 Furosemide (Lasix) 20 Mg Tablet, 1 TAB PO BID, #10 Ref 0 Prescribed by: BRYCE VO on 10/31/17 1020 Last Action: Continued on 04/08/181753 by TU VALLEJO Ipratropium/Albuterol Sulfate (Duoneb 0.5-3(2.5) Mg/3 Ml) 3 Ml Ampul.neb, 3 ML NEB QID, (Reported) Entered as Reported by: AMBREEN RAMIREZ on 04/08/182113 Last Action: New Order on 04/08/182113 by AMBREEN RAMIREZ Metoprolol Succinate (Toprol Xl) 50 Mg Tab.er.24h, 1 TAB PO DAILY, #30 Ref 5 ( Reported) Entered as Reported by: AMBREEN RAMIREZ on 04/08/182113 Last Action: New Order on 04/08/182113 by AMBREEN RAMIREZ Mometasone/Formoterol (Dulera 200 Mcg/5 Mcg Inhaler) 13 Gm Hfa.aer.ad, 2 PUFF IH BID, #13 Ref 5 (Reported) Entered as Reported by: AMBREEN RAMIREZ on 04/08/182113 Last Action: New Order on 04/08/182113 by AMBREEN RAMIREZ Prednisone (Prednisone) 50 Mg Tablet, 1 TAB PO DAILY, #5 Prescribed by: BRYCE VO on 10/31/17 1020 Last Action: HELD on 04/08/181753 by TU VALLEJO Prednisone (Prednisone) 50 Mg Tablet, 1 TAB PO DAILY, #5 Prescribed by: ASAF JARAMILLO D.O. on 04/02/18905 Last Action: HELD on 04/08/181753 by TU VALLEJO Scheduled PRN Albuterol Sulfate (Proair Hfa Inhaler) 8.5 Gm Hfa.aer.ad, 1 PUFF INH PRN Q6HRS PRN for SHORTNESS OF BREATH, Ref 0 (Reported) Entered as Reported by: AMBREEN RAMIREZ on 04/08/182113 Last Action: New Order on 04/08/182113 by TU MCCLAIN MD Apr 09, 2018 09:57
--- NOTE | 2018-04-09 14:23 | PDOC ---
PULMONARY PROGRESS NOTES Vitals Vital Signs Date Time Temp Pulse Resp B/P (MAP) Pulse Ox O2 Delivery O2 Flow Rate FiO2 04/09/18 11:17 Nasal Cannula 2.0 04/09/18 11:00 97.7 88 20 134/66 (88) 94 97.7 Cardiovascular: S1 Labs Laboratory Tests Test 04/08/18 16:40 04/08/18 17:04 04/09/18 03:00 White Blood Count 9.5 x10^3/uL (4.0-11.0) 8.0 x10^3/uL (4.0-11.0) Red Blood Count 4.38 x10^6/uL (4.30-5.70) 4.49 x10^6/uL (4.30-5.70) Hemoglobin 14.1 g/dL (13.0-17.5) 14.5 g/dL (13.0-17.5) Hematocrit 41.7 % (39.0-53.0) 42.9 % (39.0-53.0) Mean Corpuscular Volume 95 fL (79-100) 96 fL (79-100) Mean Corpuscular Hemoglobin 32 pg (25-35) 32 pg (25-35) Mean Corpuscular Hemoglobin Concent 34 g/dL (31-37) 34 g/dL (31-37) Red Cell Distribution Width 14.9 % (11.5-14.5) 15.4 % (11.5-14.5) Platelet Count 217 x10^3/uL (140-400) 219 x10^3/uL (140-400) Neutrophils (%) (Auto) 77 % (31-73) 94 % (31-73) Lymphocytes (%) (Auto) 12 % (24-48) 5 % (24-48) Monocytes (%) (Auto) 9 % (0-9) 2 % (0-9) Eosinophils (%) (Auto) 2 % (0-3) 0 % (0-3) Basophils (%) (Auto) 0 % (0-3) 0 % (0-3) Neutrophils # (Auto) 7.3 x10^3uL (1.8-7.7) 7.4 x10^3uL (1.8-7.7) Lymphocytes # (Auto) 1.1 x10^3/uL (1.0-4.8) 0.4 x10^3/uL (1.0-4.8) Monocytes # (Auto) 0.9 x10^3/uL (0.0-1.1) 0.1 x10^3/uL (0.0-1.1) Eosinophils # (Auto) 0.2 x10^3/uL (0.0-0.7) 0.0 x10^3/uL (0.0-0.7) Basophils # (Auto) 0.0 x10^3/uL (0.0-0.2) 0.0 x10^3/uL (0.0-0.2) Sodium Level 138 mmol/L (136-145) 137 mmol/L (136-145) Potassium Level 3.8 mmol/L (3.5-5.1) 4.3 mmol/L (3.5-5.1) Chloride Level 101 mmol/L (98-107) 101 mmol/L (98-107) Carbon Dioxide Level 32 mmol/L (21-32) 30 mmol/L (21-32) Anion Gap 5 (6-14) 6 (6-14) Blood Urea Nitrogen 17 mg/dL (8-26) 20 mg/dL (8-26) Creatinine 0.8 mg/dL (0.7-1.3) 0.9 mg/dL (0.7-1.3) Estimated GFR (Cockcroft-Gault) 97.0 84.7 BUN/Creatinine Ratio 21 (6-20) Glucose Level 122 mg/dL (70-99) 137 mg/dL (70-99) Calcium Level 9.7 mg/dL (8.5-10.1) 9.5 mg/dL (8.5-10.1) Magnesium Level 1.9 mg/dL (1.8-2.4) Total Bilirubin 0.4 mg/dL (0.2-1.0) Aspartate Amino Transf (AST/SGOT) 23 U/L (15-37) Alanine Aminotransferase (ALT/SGPT) 45 U/L (16-63) Alkaline Phosphatase 108 U/L (46-116) Creatine Kinase 268 U/L (39-308) Creatine Kinase MB (Mass) 5.2 ng/mL (0.0-3.6) Creatine Kinase MB Relative Index 1.9 % (0-4) Troponin I Quantitative < 0.017 ng/mL (0.000-0.055) PT-Cdw-S-Type Natriuretic Peptide 403 pg/mL (0-124) Total Protein 6.8 g/dL (6.4-8.2) Albumin 3.5 g/dL (3.4-5.0) Albumin/Globulin Ratio 1.1 (1.0-1.7) Lactic Acid Level 0.7 mmol/L (0.4-2.0) Segmented Neutrophils % 94 % (35-66) Lymphocytes % 6 % (24-48) Platelet Estimate Adequate (ADEQUATE) Laboratory Tests Test 04/08/18 16:40 04/08/18 17:04 04/09/18 03:00 White Blood Count 9.5 x10^3/uL (4.0-11.0) 8.0 x10^3/uL (4.0-11.0) Red Blood Count 4.38 x10^6/uL (4.30-5.70) 4.49 x10^6/uL (4.30-5.70) Hemoglobin 14.1 g/dL (13.0-17.5) 14.5 g/dL (13.0-17.5) Hematocrit 41.7 % (39.0-53.0) 42.9 % (39.0-53.0) Mean Corpuscular Volume 95 fL (79-100) 96 fL (79-100) Mean Corpuscular Hemoglobin 32 pg (25-35) 32 pg (25-35) Mean Corpuscular Hemoglobin Concent 34 g/dL (31-37) 34 g/dL (31-37) Red Cell Distribution Width 14.9 % (11.5-14.5) 15.4 % (11.5-14.5) Platelet Count 217 x10^3/uL (140-400) 219 x10^3/uL (140-400) Neutrophils (%) (Auto) 77 % (31-73) 94 % (31-73) Lymphocytes (%) (Auto) 12 % (24-48) 5 % (24-48) Monocytes (%) (Auto) 9 % (0-9) 2 % (0-9) Eosinophils (%) (Auto) 2 % (0-3) 0 % (0-3) Basophils (%) (Auto) 0 % (0-3) 0 % (0-3) Neutrophils # (Auto) 7.3 x10^3uL (1.8-7.7) 7.4 x10^3uL (1.8-7.7) Lymphocytes # (Auto) 1.1 x10^3/uL (1.0-4.8) 0.4 x10^3/uL (1.0-4.8) Monocytes # (Auto) 0.9 x10^3/uL (0.0-1.1) 0.1 x10^3/uL (0.0-1.1) Eosinophils # (Auto) 0.2 x10^3/uL (0.0-0.7) 0.0 x10^3/uL (0.0-0.7) Basophils # (Auto) 0.0 x10^3/uL (0.0-0.2) 0.0 x10^3/uL (0.0-0.2) Sodium Level 138 mmol/L (136-145) 137 mmol/L (136-145) Potassium Level 3.8 mmol/L (3.5-5.1) 4.3 mmol/L (3.5-5.1) Chloride Level 101 mmol/L (98-107) 101 mmol/L (98-107) Carbon Dioxide Level 32 mmol/L (21-32) 30 mmol/L (21-32) Anion Gap 5 (6-14) 6 (6-14) Blood Urea Nitrogen 17 mg/dL (8-26) 20 mg/dL (8-26) Creatinine 0.8 mg/dL (0.7-1.3) 0.9 mg/dL (0.7-1.3) Estimated GFR (Cockcroft-Gault) 97.0 84.7 BUN/Creatinine Ratio 21 (6-20) Glucose Level 122 mg/dL (70-99) 137 mg/dL (70-99) Calcium Level 9.7 mg/dL (8.5-10.1) 9.5 mg/dL (8.5-10.1) Magnesium Level 1.9 mg/dL (1.8-2.4) Total Bilirubin 0.4 mg/dL (0.2-1.0) Aspartate Amino Transf (AST/SGOT) 23 U/L (15-37) Alanine Aminotransferase (ALT/SGPT) 45 U/L (16-63) Alkaline Phosphatase 108 U/L (46-116) Creatine Kinase 268 U/L (39-308) Creatine Kinase MB (Mass) 5.2 ng/mL (0.0-3.6) Creatine Kinase MB Relative Index 1.9 % (0-4) Troponin I Quantitative < 0.017 ng/mL (0.000-0.055) PU-Cuk-Q-Type Natriuretic Peptide 403 pg/mL (0-124) Total Protein 6.8 g/dL (6.4-8.2) Albumin 3.5 g/dL (3.4-5.0) Albumin/Globulin Ratio 1.1 (1.0-1.7) Lactic Acid Level 0.7 mmol/L (0.4-2.0) Segmented Neutrophils % 94 % (35-66) Lymphocytes % 6 % (24-48) Platelet Estimate Adequate (ADEQUATE) Medications Active Scripts Medications Dose Route/Sig Max Daily Dose Days Date Category Symbicort 80-4.5 Mcg Inhaler (Budesonide/Formoterol Fumarate) 10.2 Gm Hfa.aer.ad 2 Puff IH BID 04/09/18 Rx Dulera 200 Mcg/5 Mcg Inhaler (Mometasone/Formoterol) 13 Gm Hfa.aer.ad 2 Puff IH BID 04/08/18 Reported Toprol Xl (Metoprolol Succinate) 50 Mg Tab.er.24h 1 Tab PO DAILY 04/08/18 Reported Atorvastatin Calcium 40 Mg Tablet 1 Tab PO DAILY 04/08/18 Reported Duoneb 0.5-3(2.5) Mg/3 Ml (Albuterol/Ipratropium) 3 Ml Ampul.neb 3 Ml NEB QID 04/08/18 Reported Proair Hfa Inhaler (Albuterol Sulfate) 8.5 Gm Hfa.aer.ad 1 Puff INH PRN Q6HRS PRN 04/08/18 Reported Azithromycin Tablet (Azithromycin) 250 Mg Tablet 250 Mg PO DAILY 04/02/18 Rx Prednisone 50 Mg Tablet 1 Tab PO DAILY 04/02/18 Rx Prednisone 50 Mg Tablet 1 Tab PO DAILY 10/31/17 Rx Lasix (Furosemide) 20 Mg Tablet 1 Tab PO BID 10/31/17 Rx Impression . FULL NOTE DICTATED PNEUMONIA RUL ACUTE RESP FAILURE HOLD D/C SEE ORDERS THANKS VINCENZO MORRIS MD Apr 09, 2018 14:23
[2018-04-09] MEDS: cefTRIAXone IV Push 1 GM VIAL. IVP SCH (15:25)
[2018-04-09] MEDS: DOXYCYCLINE HYCLATE 100 MG TABLET PO SCH ×2 (15:25→23:00)
--- NOTE | 2018-04-09 19:53 | CONS ---
DATE OF CONSULTATION: 04/09/2018 ATTENDING PHYSICIAN: Dr. Garsia. REASON FOR CONSULTATION: The patient seen in pulmonary consultation at the request of Dr. Garsia for acute respiratory failure and shortness of air, wheezing. HISTORY OF PRESENT ILLNESS: The patient is a 67-year-old male that was in approximately a week ago in the Emergency Room, treated for acute exacerbation of COPD. He took the medication as prescribed. He is normally home on Dulera, DuoNeb and albuterol p.r.n. He presented with increasing shortness of breath, cough productive of white sputum. No hemoptysis. He normally does not wear oxygen at home. He is currently requiring 2 liters of oxygen supplementation. His x-ray was personally reviewed in comparison to the x-ray from a week ago. He does have a new right upper lobe infiltrate. The patient states that he normally sees a physician at [facility]. He has been having some increasing shortness of breath and acute exacerbations of COPD since July. He actually underwent a CT chest, which was reportedly normal. There was evidence of emphysema, but no lung cancer. He also had a cardiac catheterization. Upon admission to the Emergency Department, the patient could not complete full sentences. When I saw him, he had an elevated respiratory rate and was feeling slightly better. The patient denies fever, chills, nausea, vomiting, diarrhea. PAST MEDICAL HISTORY: Tobacco dependence, COPD with an asthma component. He had history of asthma prior to smoking, otherwise no other medical problems. REVIEW OF SYSTEMS: CONSTITUTIONAL: No fever or chills. EYES: No change in visual acuity. HEENT: No nasal congestion, no sore throat. RESPIRATORY: As indicated above. CARDIOVASCULAR: No chest pain. No pressure. Previous cardiac catheterization was normal. GASTROINTESTINAL: No nausea, vomiting, or diarrhea. GENITOURINARY: No dysuria or frequency. MUSCULOSKELETAL: No localized muscle aches or joint pains. SKIN: No new skin rashes. NEUROLOGIC: No headaches, diplopia or blurred vision. ALLERGIES: No known drug allergies. SOCIAL HISTORY: He smokes. 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 FAMILY HISTORY: No family history of early lung disorder. CURRENT MEDICATIONS: List was reviewed. PHYSICAL EXAMINATION: VITAL SIGNS: Stable. O2 saturation currently on 2 liters was greater than 92%. HEENT: Eyes, the sclerae were nonicteric. NECK: Jugular venous distention was not elevated. No lymphadenopathy. CHEST: Full expansion. LUNGS: Very poor airway flow with mild expiratory wheeze. CARDIOVASCULAR: Regular rate and rhythm with S1, S2, no S3. ABDOMEN: Soft, nontender, nondistended. EXTREMITIES: No clubbing, cyanosis or edema. NEUROLOGIC: The patient was awake, alert, following commands. A detailed neuro exam was not performed. LABORATORY DATA: Reviewed. White count was normal. Hemoglobin and hematocrit were normal. Electrolytes were normal. BUN and creatinine was normal. BNP was slightly elevated. Chest x-ray as indicated above. IMPRESSION: 1. Acute respiratory failure secondary to acute exacerbation of chronic obstructive pulmonary disease and right upper lobe pneumonia. 2. Right upper lobe pneumonia, suspect gram-negative, possibly gram-positive. 3. Tobacco dependence. 4. Acute exacerbation of chronic obstructive pulmonary disease. PLAN: 1. Recommend holding discharge and continue antibiotics, steroids, and nebulized treatments. 2. The patient instructed on the importance of discontinuing tobacco use. 3. A 6-minute walk prior to discharge. 4. Follow up in the office in 4-6 weeks after discharge. I do appreciate the privilege in sharing in the patient's care. VINCENZO MORRIS MD DR: SURYA/neymar JOB#: [id number] / [id number]
[2018-04-09] MEDS: LACTOBACILLUS RHAMNOSUS GG 1 CAPSULE. PO SCH (21:00)
[2018-04-10 03:00] VITALS: BP 125/68
[2018-04-10] MEDS: methylPREDNISolone SOD SUCC PF 40 MG/ML VIAL. IV SCH ×2 (05:01→14:44)
[2018-04-10] MEDS: FUROSEMIDE 20 MG TABLET PO SCH (05:02)
[2018-04-10 07:00] VITALS: BP 107/79
[2018-04-10] MEDS: IPRATRPIUM/ALBUTEROL 0.5/2.5MG 3 ML NEBU. NEB SCH ×3 (07:23→15:16)
--- NOTE | 2018-04-10 09:51 | PDOC ---
PROGRESS NOTES Chief Complaint Chief Complaint COPD exacerbation smoker At least a pack-a-day smoker SIRS secondary to above, no sepsis, no organ dysfunction possible small pneumonia on chest x-ray History of Present Illness History of Present Illness dc held yesterday by pulmonary because of possibly a spot of pneumonia on right lung field On IV antibiotics and other breathing treatments Plan: CPM, await pulmonary rounds Vitals Vitals Vital Signs Date Time Temp Pulse Resp B/P (MAP) Pulse Ox O2 Delivery O2 Flow Rate FiO2 04/10/18 07:23 94 Nasal Cannula 2.0 04/10/18 07:00 97.8 79 20 107/79 (88) 97.8 Physical Exam General: Alert, Oriented X3, Cooperative, mild distress, moderate distress Abdomen: Normal bowel sounds Extremities: No clubbing, No cyanosis, No edema, Normal pulses, No tenderness/ swelling Skin: No rashes, No breakdown, No significant lesion Review of Systems Review of Systems A 14 point ROS was completed with the following noted as positive: Other systems reviewed and negative. \CONSTITUTIONAL: No fever or chills EYES: No recent changes SKIN: No rash or itching CARDIOVASCULAR: No chest pain, syncope, palpitations, or edema RESPIRATORY: No SOB or cough GASTROINTESTINAL: No nausea, vomiting or abdominal pain NEUROLOGICAL: No headaches or weakness ENDOCRINE: No cold or heat intolerance GENITOURINARY: No urgency or frequency of urination MUSCULOSKELETAL: No back pain or joint pain LYMPHATICS: No enlarged lymph nodes PSYCHIATRIC: No anxiety or depression Assessment and Plan Assessmemt and Plan Problems Medical Problems: (1) COPD exacerbation Status: Acute (2) Dyspnea Status: Acute Comment Review of Relevant I have reviewed the following items nguyen (where applicable) has been applied. Labs Laboratory Tests Test 04/08/18 16:40 04/08/18 17:04 04/09/18 03:00 White Blood Count 9.5 x10^3/uL (4.0-11.0) 8.0 x10^3/uL (4.0-11.0) Red Blood Count 4.38 x10^6/uL (4.30-5.70) 4.49 x10^6/uL (4.30-5.70) Hemoglobin 14.1 g/dL (13.0-17.5) 14.5 g/dL (13.0-17.5) Hematocrit 41.7 % (39.0-53.0) 42.9 % (39.0-53.0) Mean Corpuscular Volume 95 fL (79-100) 96 fL (79-100) Mean Corpuscular Hemoglobin 32 pg (25-35) 32 pg (25-35) Mean Corpuscular Hemoglobin Concent 34 g/dL (31-37) 34 g/dL (31-37) Red Cell Distribution Width 14.9 % (11.5-14.5) 15.4 % (11.5-14.5) Platelet Count 217 x10^3/uL (140-400) 219 x10^3/uL (140-400) Neutrophils (%) (Auto) 77 % (31-73) 94 % (31-73) Lymphocytes (%) (Auto) 12 % (24-48) 5 % (24-48) Monocytes (%) (Auto) 9 % (0-9) 2 % (0-9) Eosinophils (%) (Auto) 2 % (0-3) 0 % (0-3) Basophils (%) (Auto) 0 % (0-3) 0 % (0-3) Neutrophils # (Auto) 7.3 x10^3uL (1.8-7.7) 7.4 x10^3uL (1.8-7.7) Lymphocytes # (Auto) 1.1 x10^3/uL (1.0-4.8) 0.4 x10^3/uL (1.0-4.8) Monocytes # (Auto) 0.9 x10^3/uL (0.0-1.1) 0.1 x10^3/uL (0.0-1.1) Eosinophils # (Auto) 0.2 x10^3/uL (0.0-0.7) 0.0 x10^3/uL (0.0-0.7) Basophils # (Auto) 0.0 x10^3/uL (0.0-0.2) 0.0 x10^3/uL (0.0-0.2) Sodium Level 138 mmol/L (136-145) 137 mmol/L (136-145) Potassium Level 3.8 mmol/L (3.5-5.1) 4.3 mmol/L (3.5-5.1) Chloride Level 101 mmol/L (98-107) 101 mmol/L (98-107) Carbon Dioxide Level 32 mmol/L (21-32) 30 mmol/L (21-32) Anion Gap 5 (6-14) 6 (6-14) Blood Urea Nitrogen 17 mg/dL (8-26) 20 mg/dL (8-26) Creatinine 0.8 mg/dL (0.7-1.3) 0.9 mg/dL (0.7-1.3) Estimated GFR (Cockcroft-Gault) 97.0 84.7 BUN/Creatinine Ratio 21 (6-20) Glucose Level 122 mg/dL (70-99) 137 mg/dL (70-99) Calcium Level 9.7 mg/dL (8.5-10.1) 9.5 mg/dL (8.5-10.1) Magnesium Level 1.9 mg/dL (1.8-2.4) Total Bilirubin 0.4 mg/dL (0.2-1.0) Aspartate Amino Transf (AST/SGOT) 23 U/L (15-37) Alanine Aminotransferase (ALT/SGPT) 45 U/L (16-63) Alkaline Phosphatase 108 U/L (46-116) Creatine Kinase 268 U/L (39-308) Creatine Kinase MB (Mass) 5.2 ng/mL (0.0-3.6) Creatine Kinase MB Relative Index 1.9 % (0-4) Troponin I Quantitative < 0.017 ng/mL (0.000-0.055) WY-Dso-B-Type Natriuretic Peptide 403 pg/mL (0-124) Total Protein 6.8 g/dL (6.4-8.2) Albumin 3.5 g/dL (3.4-5.0) Albumin/Globulin Ratio 1.1 (1.0-1.7) Lactic Acid Level 0.7 mmol/L (0.4-2.0) Segmented Neutrophils % 94 % (35-66) Lymphocytes % 6 % (24-48) Platelet Estimate Adequate (ADEQUATE) Microbiology 04/08/18 Blood Culture - Preliminary, Resulted NO GROWTH AFTER 1 DAY Medications Current Medications Sodium Chloride 1,000 ml @ 1,000 mls/hr 1X ONCE IV Last administered on at 16:51; Start 04/08/18 at 16:45; Stop 04/08/18 at 17:44; Status DC Albuterol/ Ipratropium (Duoneb) 3 ml 1X ONCE NEB Last administered on at 16:51; Start 04/08/18 at 16:45; Stop 04/08/18 at 16:46; Status DC Methylprednisolone Sodium Succinate (SOLU-Medrol 125MG VIAL) 125 mg 1X ONCE IV Last administered on 04/08/18at 16:50; Start 04/08/18 at 16:45; Stop 04/08/18 at 16:46; Status DC Doxycycline Hyclate (Vibra-Tab) 100 mg 1X ONCE PO Last administered on at 18:08; Start 04/08/18 at 17:45; Stop 04/08/18 at 17:48; Status DC Furosemide (Lasix) 20 mg [id number] PO Last administered on 04/10/18at 05:02; Start 04/08/18 at 18:00 Albuterol/ Ipratropium (Duoneb) 3 ml RTQID NEB Last administered on 04/10/18at 07:23; Start 04/08/18 at 20:00 Albuterol Sulfate (Ventolin Neb Soln) 2.5 mg PRN Q4HRS PRN NEB SHORTNESS OF BREATH; Start 04/08/18 at 18:00 Benzonatate (Tessalon Perle) 100 mg [id number] PO Last administered on 04/09/18at 21 :00; Start 04/08/18 at 21:00 Nicotine (Nicoderm Cq 21mg) 1 patch PRN DAILY PRN TD SMOKING CESSATION; Start 04/08/18 at 18:00 Guaifenesin (Robitussin Dm) 10 ml PRN Q6HRS PRN PO COUGH; Start 04/08/18 at 18: 00 Diphenhydramine HCl (Benadryl) 25 mg PRN QHS PRN PO INSOMNIA; Start 04/08/18 at 18:00 Methylprednisolone Sodium Succinate (SOLU-Medrol 40MG VIAL) 40 mg Q8HRS IV Last administered on 04/10/18at 05:01; Start 04/08/18 at 22:00 Acetaminophen (Tylenol) 500 mg PRN Q6HRS PRN PO MILD PAIN / TEMP; Start at 18:00 Acetaminophen/ Codeine Phosphate (Tylenol #3) 1 tab PRN Q6HRS PRN PO MODERATE - SEVERE PAIN; Start 04/08/18 at 18:00 Ondansetron HCl (Zofran) 4 mg PRN Q6HRS PRN IV NAUSEA/VOMITING; Start 04/08/18 at 18:00 Ondansetron HCl (Zofran Odt) 4 mg PRN Q6HRS PRN PO NAUSEA/VOMITING; Start 04/08 at 18:00 Acetaminophen (Tylenol) 650 mg PRN Q4HRS PRN PO FEVER; Start 04/08/18 at 18:00 ; Stop 04/09/18 at 17:53; Status DC Albuterol/ Ipratropium (Duoneb) 3 ml RTQID NEB ; Start 04/08/18 at 20:00; Stop 04/09/18 at 19:59; Status UNV Ceftriaxone Sodium 1 gm/ Dextrose 50 ml @ 100 mls/hr Q24H IV ; Start 04/09/18 at 14:15; Status UNV Doxycycline Hyclate (Vibra-Tab) 100 mg BID PO Last administered on 04/09/18at 23 :00; Start 04/09/18 at 15:00 Ceftriaxone Sodium (Rocephin) 1 gm Q24H IVP Last administered on 04/09/18at 15: 25; Start 04/09/18 at 15:00 Lactobacillus Rhamnosus (Culturelle) 1 cap BID PO Last administered on at 21:00; Start 04/09/18 at 21:00 Active Scripts Active Symbicort 80-4.5 Mcg Inhaler (Budesonide/Formoterol Fumarate) 10.2 Gm Hfa.aer.ad 2 Puff IH BID Azithromycin Tablet (Azithromycin) 250 Mg Tablet 250 Mg PO DAILY Prednisone 50 Mg Tablet 1 Tab PO DAILY Prednisone 50 Mg Tablet 1 Tab PO DAILY Lasix (Furosemide) 20 Mg Tablet 1 Tab PO BID Reported Dulera 200 Mcg/5 Mcg Inhaler (Mometasone/Formoterol) 13 Gm Hfa.aer.ad 2 Puff IH BID Toprol Xl (Metoprolol Succinate) 50 Mg Tab.er.24h 1 Tab PO DAILY Atorvastatin Calcium 40 Mg Tablet 1 Tab PO DAILY Duoneb 0.5-3(2.5) Mg/3 Ml (Albuterol/Ipratropium) 3 Ml Ampul.neb 3 Ml NEB QID Proair Hfa Inhaler (Albuterol Sulfate) 8.5 Gm Hfa.aer.ad 1 Puff INH PRN Q6HRS PRN Vitals/I & O Vital Sign - Last 24 Hours 04/09/18 04/09/18 04/09/18 04/09/18 11:00 11:17 14:59 15:00 Temp 97.7 97.8 97.7 97.8 Pulse 88 89 Resp 20 20 B/P (MAP) 134/66 (88) 138/72 (94) Pulse Ox 94 95 O2 Delivery Nasal Cannula Nasal Cannula Nasal Cannula Nasal Cannula O2 Flow Rate 3.0 2.0 2.0 3.0 04/09/18 04/09/18 04/09/18 04/10/18 19:00 19:41 23:00 03:00 Temp 97.6 97.8 97.8 97.6 97.8 97.8 Pulse 76 81 67 Resp 16 15 15 B/P (MAP) 122/72 (89) 110/77 (88) 125/68 (87) Pulse Ox 94 94 92 O2 Delivery Room Air Nasal Cannula Room Air Room Air O2 Flow Rate 2.0 2.0 04/10/18 04/10/18 07:00 07:23 Temp 97.8 97.8 Pulse 79 Resp 20 B/P (MAP) 107/79 (88) Pulse Ox 91 94 O2 Delivery Room Air Nasal Cannula O2 Flow Rate 2.0 Intake and Output 04/09/18 04/09/18 04/10/18 15:00 23:00 07:00 Intake Total 600 ml 1200 ml Output Total 600 ml 0 ml Balance 600 ml 600 ml 0 ml TU VALLEJO MD Apr 10, 2018 09:51
[2018-04-10] MEDS: BENZONATATE 100 MG CAPSULE. PO SCH ×2 (10:39→14:44)
[2018-04-10] MEDS: DOXYCYCLINE HYCLATE 100 MG TABLET PO SCH (10:40)
[2018-04-10] MEDS: LACTOBACILLUS RHAMNOSUS GG 1 CAPSULE. PO SCH (10:41)
[2018-04-10 11:00] VITALS: BP 108/75
--- NOTE | 2018-04-10 11:21 | PDOC ---
PULMONARY PROGRESS NOTES Vitals Vital Signs Date Time Temp Pulse Resp B/P (MAP) Pulse Ox O2 Delivery O2 Flow Rate FiO2 04/10/18 07:23 94 Nasal Cannula 2.0 04/10/18 07:00 97.8 79 20 107/79 (88) 97.8 Cardiovascular: S1 Labs Laboratory Tests Test 04/08/18 16:40 04/08/18 17:04 04/09/18 03:00 White Blood Count 9.5 x10^3/uL (4.0-11.0) 8.0 x10^3/uL (4.0-11.0) Red Blood Count 4.38 x10^6/uL (4.30-5.70) 4.49 x10^6/uL (4.30-5.70) Hemoglobin 14.1 g/dL (13.0-17.5) 14.5 g/dL (13.0-17.5) Hematocrit 41.7 % (39.0-53.0) 42.9 % (39.0-53.0) Mean Corpuscular Volume 95 fL (79-100) 96 fL (79-100) Mean Corpuscular Hemoglobin 32 pg (25-35) 32 pg (25-35) Mean Corpuscular Hemoglobin Concent 34 g/dL (31-37) 34 g/dL (31-37) Red Cell Distribution Width 14.9 % (11.5-14.5) 15.4 % (11.5-14.5) Platelet Count 217 x10^3/uL (140-400) 219 x10^3/uL (140-400) Neutrophils (%) (Auto) 77 % (31-73) 94 % (31-73) Lymphocytes (%) (Auto) 12 % (24-48) 5 % (24-48) Monocytes (%) (Auto) 9 % (0-9) 2 % (0-9) Eosinophils (%) (Auto) 2 % (0-3) 0 % (0-3) Basophils (%) (Auto) 0 % (0-3) 0 % (0-3) Neutrophils # (Auto) 7.3 x10^3uL (1.8-7.7) 7.4 x10^3uL (1.8-7.7) Lymphocytes # (Auto) 1.1 x10^3/uL (1.0-4.8) 0.4 x10^3/uL (1.0-4.8) Monocytes # (Auto) 0.9 x10^3/uL (0.0-1.1) 0.1 x10^3/uL (0.0-1.1) Eosinophils # (Auto) 0.2 x10^3/uL (0.0-0.7) 0.0 x10^3/uL (0.0-0.7) Basophils # (Auto) 0.0 x10^3/uL (0.0-0.2) 0.0 x10^3/uL (0.0-0.2) Sodium Level 138 mmol/L (136-145) 137 mmol/L (136-145) Potassium Level 3.8 mmol/L (3.5-5.1) 4.3 mmol/L (3.5-5.1) Chloride Level 101 mmol/L (98-107) 101 mmol/L (98-107) Carbon Dioxide Level 32 mmol/L (21-32) 30 mmol/L (21-32) Anion Gap 5 (6-14) 6 (6-14) Blood Urea Nitrogen 17 mg/dL (8-26) 20 mg/dL (8-26) Creatinine 0.8 mg/dL (0.7-1.3) 0.9 mg/dL (0.7-1.3) Estimated GFR (Cockcroft-Gault) 97.0 84.7 BUN/Creatinine Ratio 21 (6-20) Glucose Level 122 mg/dL (70-99) 137 mg/dL (70-99) Calcium Level 9.7 mg/dL (8.5-10.1) 9.5 mg/dL (8.5-10.1) Magnesium Level 1.9 mg/dL (1.8-2.4) Total Bilirubin 0.4 mg/dL (0.2-1.0) Aspartate Amino Transf (AST/SGOT) 23 U/L (15-37) Alanine Aminotransferase (ALT/SGPT) 45 U/L (16-63) Alkaline Phosphatase 108 U/L (46-116) Creatine Kinase 268 U/L (39-308) Creatine Kinase MB (Mass) 5.2 ng/mL (0.0-3.6) Creatine Kinase MB Relative Index 1.9 % (0-4) Troponin I Quantitative < 0.017 ng/mL (0.000-0.055) EU-Vsp-E-Type Natriuretic Peptide 403 pg/mL (0-124) Total Protein 6.8 g/dL (6.4-8.2) Albumin 3.5 g/dL (3.4-5.0) Albumin/Globulin Ratio 1.1 (1.0-1.7) Lactic Acid Level 0.7 mmol/L (0.4-2.0) Segmented Neutrophils % 94 % (35-66) Lymphocytes % 6 % (24-48) Platelet Estimate Adequate (ADEQUATE) Medications Active Scripts Medications Dose Route/Sig Max Daily Dose Days Date Category Symbicort 80-4.5 Mcg Inhaler (Budesonide/Formoterol Fumarate) 10.2 Gm Hfa.aer.ad 2 Puff IH BID 04/09/18 Rx Dulera 200 Mcg/5 Mcg Inhaler (Mometasone/Formoterol) 13 Gm Hfa.aer.ad 2 Puff IH BID 04/08/18 Reported Toprol Xl (Metoprolol Succinate) 50 Mg Tab.er.24h 1 Tab PO DAILY 04/08/18 Reported Atorvastatin Calcium 40 Mg Tablet 1 Tab PO DAILY 04/08/18 Reported Duoneb 0.5-3(2.5) Mg/3 Ml (Albuterol/Ipratropium) 3 Ml Ampul.neb 3 Ml NEB QID 04/08/18 Reported Proair Hfa Inhaler (Albuterol Sulfate) 8.5 Gm Hfa.aer.ad 1 Puff INH PRN Q6HRS PRN 04/08/18 Reported Azithromycin Tablet (Azithromycin) 250 Mg Tablet 250 Mg PO DAILY 04/02/18 Rx Prednisone 50 Mg Tablet 1 Tab PO DAILY 04/02/18 Rx Prednisone 50 Mg Tablet 1 Tab PO DAILY 10/31/17 Rx Lasix (Furosemide) 20 Mg Tablet 1 Tab PO BID 10/31/17 Rx Impression . FULL NOTE DICTATED PNEUMONIA RUL ACUTE RESP FAILURE HOLD D/C SEE ORDERS THANKS Plan . PT NOT SEEN D/C EARLIER VINCENZO MORRIS MD Apr 10, 2018 11:21
[2018-04-10] MEDS: cefTRIAXone IV Push 1 GM VIAL. IVP SCH (14:44)
[2018-04-10 15:05] VITALS: BP 106/74
== END 2018-04-10 16:30 | disposition home or self-care (01) | DRG 193 ==
LOC: ER 16:15 → 5 SOUTH 17:37
PROVIDERS: ADMIT Internal Medicine; ATTEND Internal Medicine
DX: J18.9 Pneumonia, unspecified organism (principal); J96.00 Acute respiratory failure, unspecified whether with hypoxia or hypercapnia; J44.0 Chronic obstructive pulmonary disease with (acute) lower respiratory infection; J44.1 Chronic obstructive pulmonary disease with (acute) exacerbation; R65.10 Systemic inflammatory response syndrome (SIRS) of non-infectious origin without acute organ dysfunction; J20.9 Acute bronchitis, unspecified; F17.210 Nicotine dependence, cigarettes, uncomplicated; Z79.899 Other long term (current) drug therapy; Z79.51 Long term (current) use of inhaled steroids; Z71.6 Tobacco abuse counseling
CPT/HCPCS: 36415; 71045; 80048; 80053; 82553; 83605; 83735; 83880; 84484; 85007; 85025; 87040; 93005; 94618; 94640; 94760; 96361; 96374; 99406; J0696; J2920; J2930; J7030; J7620; 99285-25